=== PATIENT | male | born 1965 | race Caucasian/White ===

== ENCOUNTER 2020-02-20 08:21 | Outpatient (REF) | payer OTHER, SELFPAY ==
[2020-02-20 11:32] LABS: Hematocrit 44.2 % (42-52); Mean Corpuscular HGB Conc 33.9 g/dl (31.0-36.0); Mean Corpuscular Hemoglobin 31.6 pg (27.0-33.0); Mean Corpuscular Volume 93.2 fL (80-98); Mean Platelet Volume 11.1 fL (9.4-12.4); Platelet Count 231 X10*3/uL (160-400); Red Blood Count 4.74 X10*6/uL (4.60-5.80); Red Cell Distribution Width 13.3 % (11.0-16.0); White Blood Count 9.5 X10*3/uL (4.8-10.8)
[2020-02-20 12:08] LABS: Alanine Aminotransferase 43 U/L (0-40); Albumin Level 4.4 g/dL (3.5-5.0); Alkaline Phosphatase 56 U/L (39-117); Anion Gap 11 (12-20); Aspartate Amino Transferase 23 U/L (5-37); Bilirubin Total 0.7 mg/dL (0.0-1.0); Blood Urea Nitrogen 15 mg/dL (9-16); Calcium 8.7 mg/dL (8.4-10.2); Carbon Dioxide 28 mmol/L (22-29); Chloride 102 mmol/L (96-108); Cholesterol 169 mg/dL; Estimated Glomerular Filt Rate > 60; Glucose Fasting 96 mg/dL (60-99); HDL Cholesterol 36 mg/dL; LDL Cholesterol Calculated 112 mg/dl; Potassium 3.8 mmol/l (3.3-5.1); Sodium 137 mmol/L (135-145); Total Protein 6.8 g/dL (6.5-8.0); Triglycerides 107 mg/dL
[2020-02-20 12:09] LABS: Prostate Specific Antigen Scr 0.74 ng/mL (<0.05-4.0)
== END 2020-02-20 08:22 | disposition home or self-care (01) ==
LOC: HO.HMGCLNP 08:21
PROVIDERS: PCP Internal Medicine; Visit Provider Internal Medicine
DX: Z00.00 Encounter for general adult medical examination without abnormal findings (principal); Z13.220 Encounter for screening for lipoid disorders; Z12.5 Encounter for screening for malignant neoplasm of prostate
CPT/HCPCS: 36415; 80053; 80061; 84153; 85027

== ENCOUNTER 2021-06-10 09:08 | Outpatient (REF) | payer OTHER, SELFPAY ==
[2021-06-10 11:37] LABS: Appearance Urine HAZY; Color Urine YELLOW; Glucose Urine UA NEG (NEG); Leukocyte Esterase Urine NEG (NEG); Nitrite Urine NEG (NEG); Specific Gravity - Urine 1.015 (1.005-1.025); Urine Blood NEG (NEG); Urine Ketones NEG (NEG); Urine Protein NEG (NEG-TRACE)
[2021-06-10 11:40] LABS: Hematocrit 45.4 % (42.0-52.0); Hemoglobin 15.5 g/dl (14.0-18.0); Mean Corpuscular HGB Conc 34.1 g/dl (31.0-36.0); Mean Corpuscular Hemoglobin 31.6 pg (27.0-33.0); Mean Corpuscular Volume 92.7 fL (80.0-98.0); Mean Platelet Volume 10.6 fL (9.4-12.4); Platelet Count 237 X10*3/uL (160-400); Red Cell Distribution Width 14.3 % (11.0-16.0); White Blood Count 8.7 X10*3/uL (4.8-10.8)
[2021-06-10 11:54] LABS: Alanine Aminotransferase 40 U/L (0-40); Albumin Level 4.3 g/dL (3.5-5.0); Alkaline Phosphatase 56 U/L (39-117); Anion Gap 10 (12-20); Aspartate Amino Transferase 22 U/L (5-37); Bilirubin Total 0.7 mg/dL (0.0-1.0); Blood Urea Nitrogen 20 mg/dL (9-16); Calcium 9.8 mg/dL (8.4-10.2); Carbon Dioxide 30 mmol/L (22-29); Chloride 104 mmol/L (96-108); Cholesterol 187 mg/dL; Estimated Glomerular Filt Rate > 60; Glucose Fasting 106 mg/dL (60-99); HDL Cholesterol 35 mg/dL; LDL Cholesterol Calculated 123 mg/dl; Potassium 4.1 mmol/L (3.3-5.1); Sodium 140 mmol/L (135-145); Total Protein 6.9 g/dL (6.5-8.0); Triglycerides 149 mg/dL
[2021-06-10 12:16] LABS: Prostate Specific Antigen Scr 0.92 ng/mL (<0.05-4.0)
[2021-06-10 12:26] LABS: RBC Urine 0 /HPF (0); WBC Urine 0 /HPF (0-4)
== END 2021-06-10 09:09 | disposition home or self-care (01) ==
LOC: HO.HMGCLDS 09:08
PROVIDERS: PCP Internal Medicine; Visit Provider Internal Medicine
DX: Z00.00 Encounter for general adult medical examination without abnormal findings (principal); Z12.5 Encounter for screening for malignant neoplasm of prostate
CPT/HCPCS: 36415; 80053; 80061; 81001; 84153; 85027

== ENCOUNTER 2021-12-09 09:18 | Outpatient (REF) | payer OTHER, SELFPAY ==
[2021-12-09 11:43] LABS: Anion Gap 12 (12-20); Blood Urea Nitrogen 16 mg/dL (9-16); Calcium 9.8 mg/dL (8.4-10.2); Carbon Dioxide 28 mmol/L (22-29); Chloride 102 mmol/L (96-108); Estimated Glomerular Filt Rate > 60; Glucose Random 100 mg/dL (60-115); Potassium 4.4 mmol/L (3.3-5.1); Sodium 138 mmol/L (135-145)
== END 2021-12-09 09:19 | disposition home or self-care (01) ==
LOC: HO.HMGCLDS 09:18
PROVIDERS: PCP Internal Medicine; Visit Provider Internal Medicine
DX: I10 Essential (primary) hypertension (principal)
CPT/HCPCS: 36415; 80048

== ENCOUNTER 2022-04-19 07:28 | Outpatient (REF) | payer OTHER, SELFPAY ==
[2022-04-19 11:20] LABS: Appearance Urine Clear; Color Urine Yellow; Glucose Urine UA Negative (Negative); Leukocyte Esterase Urine Negative (Negative); Nitrite Urine Negative (Negative); Specific Gravity - Urine 1.015 (1.005-1.025); Urine Blood Negative (Negative); Urine Ketones Negative (Negative); Urine Protein Negative (Neg-Trace)
[2022-04-19 11:26] LABS: Bacteria Urine None Seen (None Seen); Hyaline Casts Urine 0-2 /LPF (0-2); RBC Urine 0-2 /HPF (0-2); Squamous Epithelial Cell Urine 0-2 /HPF (0-2); WBC Urine 0-5 /HPF (0-5)
[2022-04-19 11:28] LABS: MANUAL DIFF FLAG NO
[2022-04-19 11:46] LABS: Basophils Absolute Auto 0.1 X10*3/uL (0.0-0.2); Basophils Percent Auto 0.7 % (0-2); Eosinophils Absolute Auto 0.4 X10*3/uL (0.0-0.4); Eosinophils Percent Auto 3.5 % (0-4); Hematocrit 46.2 % (42.0-52.0); Hemoglobin 15.9 g/dl (14.0-18.0); Imm Gran Abs Auto 0.05 X10*3/uL (0.00-0.03); Imm Gran Pct Auto 0.5 % (0.0-0.4); Lymphocytes Absolute Auto 3.3 X10*3/uL (1.2-4.9); Lymphocytes Percent Auto 33.2 % (20-40); Mean Corpuscular HGB Conc 34.4 g/dl (31.0-36.0); Mean Corpuscular Hemoglobin 31.4 pg (27.0-33.0); Mean Corpuscular Volume 91.3 fL (80.0-98.0); Mean Platelet Volume 10.5 fL (9.4-12.4); Monocytes Absolute Auto 0.8 X10*3/uL (0.1-1.2); Monocytes Percent Auto 7.9 % (2-11); Neutrophils Absolute Auto 5.4 x10*3/uL (2.0-8.3); Neutrophils Percent Auto 54.2 % (45-73); Platelet Count 246 X10*3/uL (160-400); Red Blood Count 5.06 X10*6/uL (4.60-5.80); Red Cell Distribution Width 13.9 % (11.0-16.0)
[2022-04-19 12:28] LABS: Alanine Aminotransferase 58 U/L (0-40); Albumin Level 4.3 g/dL (3.5-5.0); Alkaline Phosphatase 66 U/L (39-117); Anion Gap 13 (12-20); Aspartate Amino Transferase 28 U/L (5-37); Bilirubin Total 0.6 mg/dL (0.0-1.0); Blood Urea Nitrogen 16 mg/dL (9-16); Calcium 9.4 mg/dL (8.4-10.2); Carbon Dioxide 29 mmol/L (22-29); Chloride 101 mmol/L (96-108); Cholesterol 201 mg/dL; Estimated Glomerular Filt Rate > 60; Glucose Fasting 117 mg/dL (60-99); HDL Cholesterol 39 mg/dL; LDL Cholesterol Calculated 134 mg/dl; Potassium 4.1 mmol/L (3.3-5.1); Sodium 139 mmol/L (135-145); Total Protein 6.8 g/dL (6.5-8.0); Triglycerides 141 mg/dL
== END 2022-04-19 07:29 | disposition home or self-care (01) ==
LOC: HO.HMGCLDS 07:28
PROVIDERS: PCP Internal Medicine; Visit Provider Internal Medicine
DX: Z00.00 Encounter for general adult medical examination without abnormal findings (principal); Z12.5 Encounter for screening for malignant neoplasm of prostate; I10 Essential (primary) hypertension
CPT/HCPCS: 36415; 80053; 80061; 81001; 84153; 85025

== ENCOUNTER 2022-10-13 07:11 | Outpatient (REF) | payer OTHER, SELFPAY ==
[2022-10-13 11:51] LABS: Estimated Average Glucose 108 mg/dL; Hemoglobin A1c % 5.4 %
[2022-10-13 12:13] LABS: Alanine Aminotransferase 59 U/L (0-40); Albumin Level 4.3 g/dL (3.5-5.0); Alkaline Phosphatase 60 U/L (39-117); Anion Gap 13 (12-20); Aspartate Amino Transferase 31 U/L (5-37); Bilirubin Total 0.7 mg/dL (0.0-1.0); Blood Urea Nitrogen 16 mg/dL (9-16); Calcium 9.9 mg/dL (8.4-10.2); Carbon Dioxide 25 mmol/L (22-29); Chloride 103 mmol/L (96-108); Cholesterol 185 mg/dL; Estimated Glomerular Filt Rate > 60; Glucose Fasting 111 mg/dL (60-99); HDL Cholesterol 35 mg/dL; LDL Cholesterol Calculated 106 mg/dl; Potassium 3.6 mmol/L (3.3-5.1); Sodium 137 mmol/L (135-145); Total Protein 7.2 g/dL (6.5-8.0); Triglycerides 221 mg/dL
== END 2022-10-13 07:12 | disposition home or self-care (01) ==
LOC: HO.HMGCLDS 07:11
PROVIDERS: PCP Internal Medicine; Visit Provider Internal Medicine
DX: Z00.00 Encounter for general adult medical examination without abnormal findings (principal); E78.5 Hyperlipidemia, unspecified; I10 Essential (primary) hypertension; R73.9 Hyperglycemia, unspecified
CPT/HCPCS: 36415; 80053; 80061; 83036

== ENCOUNTER 2022-10-18 09:43 | Outpatient (AMB) | payer OTHER, SELFPAY ==
[2022-10-18 10:17] VITALS: BP 126/92; PULSE 99; O2SAT 96; BMI 27.1
--- NOTE | 2022-10-18 10:17 | A.OFFPC_ITS ---
Vital Signs 10/18/22 10:17 Height 5 ft 5 in Weight 163 lb BMI 27.1 BP 126/92 H Blood Pressure Location Lt brachial Position Sitting Pulse 99 Pulse Source Pulse Oximeter Pulse Oximetry (%) 96 Oxygen Delivery Method Room Air Intake Visit Reasons: 6 month follow up Intake Note: Pt is here today for 6 months follow up visit. Allergies No Known Allergies Allergy (Verified 10/18/22 10:18) Medication List - Last Reconciled 10/18/22 by Em Miranda MD azelastine 0.05% 1 drp ophthalmic (eye) BID lisinopril 40 mg PO DAILY triamterene-hydrochlorothiazid 37.5-25 mg 1 tab PO QAM varenicline 1 mg PO BID Tobacco use date assessed: 10/18/22 Dental Screening Dental Screen Date: 10/18/22 Did you have a dental visit in the last 12 months?: Yes Did you have a dental problem in the last 6 months where you did not have access to dental care?: No Was dental information given to patient?: Patient has dentist HPI 6 month follow up HPI Details Patient presents for the follow-up on hypertension. [facility] Medical History Annual physical exam HTN (hypertension) Surgical History H/O colonoscopy Family History Father Cancer of prostate Mother No problems noted. Daughter No problems noted. Social History Housing: House Alcohol intake: current Alcohol intake frequency: a few times a month Patient Tobacco Use Status: Current everyday Tobacco user Tobacco use type: Cigarette Cigarettes Per Day: 1 e-Cigarette/Vaping Use: Never Used Current occupational status: employed Cognitive needs: No Hearing needs: No Vision needs: Yes Questionnaire Thrive Questionnaire Date Thrive assessed: 04/22/22 ORIANA-7 AMB Questionnaire ORIANA-7 Date ORIANA - 7 assessed: 04/22/22 Source: Developed by Drs. Radhames Avalos, Iona Joshi, Cayden Sherwood and colleagues, with an educational jackson from [employer]. Review of Systems Const All systems reviewed & are unremarkable except as noted in HPI and below Reports no additional complaints Eyes Reports no additional complaints ENT Reports no additional complaints Card Reports no additional complaints Resp Reports no additional complaints GI Reports no additional complaints Physical exam (Primary Care) Vital Signs: Last Vital Signs Pulse 99 10/18/22 10:17 BP 126/92 H 10/18/22 10:17 Pulse Ox 96 10/18/22 10:17 Oxygen Delivery Method Room Air 10/18/22 10:17 BMI result Body Mass Index 27.1 Tobacco/Smoking Status: Tobacco use Status Tobacco use date assessed 10/18/22 10/18/22 10:20 Patient Tobacco Use Status Current everyday Tobacco 10/18/22 10:20 Tobacco use type Cigarette 10/18/22 10:20 e-Cigarette/Vaping Use Never Used 10/18/22 10:20 Thrive Assessment: Date of Thrive Assessment Date Thrive assessed 04/22/22 10/18/22 10:20 Const General: no acute distress HENMT Head: Yes normal to inspection Face and sinus: Yes normal facial exam Eyes General: appearance normal, both eyes and all related structures Neck Neck: Yes supple Cardio Rhythm: regular rhythm Heart sounds: S1 normal heart sound present and S2 normal heart sound present GI Inspection: Yes normal to inspection Palpation (GI): Soft to palpation Percussion: Yes normal to percussion Assessment and Plan Assessment & Plan (1) HTN (hypertension): Code(s): I10 - Essential (primary) hypertension Plan: Increase lisinopril to 40 mg a day and continue Dyazide, follow-up in 6 months with a fasting labs before (2) Hyperglycemia: Code(s): R73.9 - Hyperglycemia, unspecified Plan: ADA diet regular physical activity discussed with the patient (3) Hyperlipidemia: Code(s): E78.5 - Hyperlipidemia, unspecified Plan: Continue low-cholesterol diet Orders: Orders Comprehensive Met. Panel 1 Month I10 - Essential (primary) hypertension Comprehensive [place]. Panel Fast 6 Months E78.5 - Hyperlipidemia, unspecified, I10 - Essential (primary) hypertension, R73.9 - Hyperglycemia, unspecified Lipid Panel 6 Months E78.5 - Hyperlipidemia, unspecified, I10 - Essential (primary) hypertension, R73.9 - Hyperglycemia, unspecified PSA,Total (Free>4and<10) 6 Months E78.5 - Hyperlipidemia, unspecified, I10 - Essential (primary) hypertension, R73.9 - Hyperglycemia, unspecified Complete Blood Count Auto Diff 6 Months E78.5 - Hyperlipidemia, unspecified, I10 - Essential (primary) hypertension, R73.9 - Hyperglycemia, unspecified Hemoglobin A1c 6 Months R73.9 - Hyperglycemia, unspecified Medications: New lisinopril 40 mg PO DAILY 90 tabs 3RF Discontinued lisinopril Discontinued Reason: Doctor's Order 30 mg PO DAILY 90 tabs 3RF Coding Level of Care Code Est Pt Level 4 (27799) Diagnoses HTN (hypertension) I10 Hyperglycemia R73.9 Hyperlipidemia E78.5
== END 2022-10-18 14:28 | disposition home or self-care (01) ==
PROVIDERS: Visit Provider Internal Medicine
DX: I10 Essential (primary) hypertension (principal); R73.9 Hyperglycemia, unspecified; E78.5 Hyperlipidemia, unspecified
CPT/HCPCS: 99214

== ENCOUNTER 2023-04-22 07:39 | Outpatient (REF) | payer OTHER, SELFPAY ==
[2023-04-22 11:15] LABS: MANUAL DIFF FLAG NO
[2023-04-22 11:37] LABS: Estimated Average Glucose 114 mg/dL; Hemoglobin A1C 150.2961 umol/L; Hemoglobin A1c % 5.6 % (<6.0)
[2023-04-22 11:46] LABS: Alanine Aminotransferase 122 U/L (0-40); Albumin Level 4.3 g/dL (3.5-5.0); Alkaline Phosphatase 59 U/L (39-117); Anion Gap 14 (12-20); Aspartate Amino Transferase 52 U/L (5-37); Bilirubin Total 0.7 mg/dL (0.0-1.0); Blood Urea Nitrogen 17 mg/dL (9-16); Calcium 9.6 mg/dL (8.4-10.2); Carbon Dioxide 28 mmol/L (22-29); Chloride 103 mmol/L (96-108); Cholesterol 185 mg/dL (<200); Estimated Glomerular Filt Rate > 60; Glucose Fasting 106 mg/dL (60-99); HDL Cholesterol 37 mg/dL (>40); LDL Cholesterol Calculated 123 mg/dL (<100); Potassium 3.7 mmol/L (3.3-5.1); Sodium 141 mmol/L (135-145); Total Protein 7.3 g/dL (6.5-8.0); Triglycerides 127 mg/dL (<150)
[2023-04-22 11:48] LABS: PSA,Total (Free>4and<10) 0.66 ng/mL (0.00-4.00)
[2023-04-22 12:13] LABS: Basophils Absolute Auto 0.1 X10*3/uL (0.0-0.2); Basophils Percent Auto 0.7 % (0-2); Eosinophils Absolute Auto 0.3 X10*3/uL (0.0-0.4); Eosinophils Percent Auto 3.6 % (0-4); Hematocrit 45.5 % (42.0-52.0); Hemoglobin 15.8 g/dl (14.0-18.0); Imm Gran Abs Auto 0.02 X10*3/uL (0.00-0.03); Imm Gran Pct Auto 0.2 % (0.0-0.4); Lymphocytes Absolute Auto 3.4 X10*3/uL (1.2-4.9); Mean Corpuscular HGB Conc 34.7 g/dl (31.0-36.0); Mean Corpuscular Hemoglobin 31.3 pg (27.0-33.0); Mean Corpuscular Volume 90.3 fL (80.0-98.0); Monocytes Absolute Auto 0.7 X10*3/uL (0.1-1.2); Monocytes Percent Auto 7.2 % (2-11); Neutrophils Absolute Auto 4.7 x10*3/uL (2.0-8.3); Neutrophils Percent Auto 51.3 % (45-73); Platelet Count 201 X10*3/uL (160-400); Red Blood Count 5.04 X10*6/uL (4.60-5.80); Red Cell Distribution Width 13.8 % (11.0-16.0); White Blood Count 9.1 X10*3/uL (4.8-10.8)
== END 2023-04-22 07:40 | disposition home or self-care (01) ==
LOC: HO.HMGCLDS 07:39
PROVIDERS: PCP Internal Medicine; Visit Provider Internal Medicine
DX: Z12.5 Encounter for screening for malignant neoplasm of prostate (principal); I10 Essential (primary) hypertension; E78.5 Hyperlipidemia, unspecified; R73.9 Hyperglycemia, unspecified
CPT/HCPCS: 36415; 80053; 80061; 83036; 84153; 85025

== ENCOUNTER 2023-04-27 11:14 | Outpatient (AMB) | payer OTHER, SELFPAY ==
[2023-04-27 11:51] VITALS: BP 132/80; PULSE 75; O2SAT 98; BMI 27.8
--- NOTE | 2023-04-27 11:51 | MHC.PC.OV ---
Vital Signs 04/27/23 11:51 Height 5 ft 5 in Weight 167 lb BMI 27.8 BP 132/80 Blood Pressure Location Lt brachial Position Sitting Pulse 75 Pulse Source Pulse Oximeter Pulse Oximetry (%) 98 Oxygen Delivery Method Room Air Intake Visit Reasons: annual PE Intake Note: Pt is here today for PE. Allergies No Known Allergies Allergy (Verified 04/27/23 11:54) Medication List - Last Reconciled 04/27/23 by Em Miranda MD azelastine 0.05% 1 drp ophthalmic (eye) BID lisinopril 40 mg PO DAILY triamterene-hydrochlorothiazid 37.5-25 mg 1 tab PO QAM Tobacco use date assessed: 04/27/23 Dental Screening Dental Screen Date: 04/27/23 Did you have a dental visit in the last 12 months?: Yes Did you have a dental problem in the last 6 months where you did not have access to dental care?: No Was dental information given to patient?: Patient has dentist HPI annual PE HPI Details PATIENT PRESENTS FOR PHYSICAL. [facility] Medical History HTN (hypertension) Annual physical exam Surgical History (Updated 04/27/23 @ 12:34 by Em Miranda MD) H/O colonoscopy Family History Father Cancer of prostate Mother No problems noted. Daughter No problems noted. Social History Housing: House Alcohol intake: current Alcohol intake frequency: a few times a month Patient Tobacco Use Status: Former Tobacco user (3 months ago) Tobacco use type: Cigarette Cigarettes Per Day: 1 e-Cigarette/Vaping Use: Never Used Current occupational status: employed Cognitive needs: No Hearing needs: No Vision needs: Yes Questionnaire Thrive Questionnaire Date Thrive assessed: 04/22/22 I am a: Patient What is your living situation today?: I choose not to answer this question Within the past 12 months, did the food you bought not last and you didn't have the money to get more?: I choose not to answer this question Within the past 12 months, did you worry whether your food would run out before you got money to buy more?: I choose not to answer this question THRIVE Score: 0 AUDIT C Alcohol Use Questionnaire (AUDIT-C) 1. How often do you have a drink containing alcohol?: 2-4 times a month 2. How many drinks containing alcohol do you have on a typical day when you are drinking?: 1 or 2 3. How often do you have six or more drinks on one occasion?: Never Total Score: 2 ORIANA-7 AMB Questionnaire ORIANA-7 Date ORIANA - 7 assessed: 04/22/22 Feeling nervous, anxious, or on edge: 0 = Not at all Not being able to stop or control worryin = Not at all Worrying too much about different things: 0 = Not at all Trouble relaxin = Not at all Being so restless that it is hard to sit still: 0 = Not at all Becoming easily annoyed or irritable: 0 = Not at all Feeling afraid as if something awful might happen: 0 = Not at all Total ORIANA-7 score (0-4 normal; 5-9 mild; 10-14 moderate; 15-21 severe): 0 Source: Developed by Drs. Radhames Avalos, Iona Joshi, Cayden Sherwood and colleagues, with an educational jackson from [employer]. Review of Systems Const All systems reviewed & are unremarkable except as noted in HPI and below Reports no additional complaints Eyes Reports no additional complaints ENT Reports no additional complaints Card Reports no additional complaints Resp Reports no additional complaints GI Reports no additional complaints Reports no additional complaints Physical exam (Primary Care) Vital Signs: Last Vital Signs Pulse 75 04/27/23 11:51 BP 132/80 04/27/23 11:51 Pulse Ox 98 04/27/23 11:51 Oxygen Delivery Method Room Air 04/27/23 11:51 BMI result Body Mass Index 27.8 Tobacco/Smoking Status: Tobacco use Status Tobacco use date assessed 04/27/23 04/27/23 11:56 Patient Tobacco Use Status Former Tobacco user (3 04/27/23 11:56 months ago) Tobacco use type Cigarette 04/27/23 11:56 e-Cigarette/Vaping Use Never Used 04/27/23 11:56 Thrive Assessment: Date of Thrive Assessment Date Thrive assessed 04/22/22 04/27/23 11:56 Const General: no acute distress HENMT Head: Yes normal to inspection Ears: hearing grossly normal bilaterally Mouth: Normal oral and palatal mucosa present Eyes General: appearance normal, both eyes and all related structures Neck Neck: Yes no lymphadenopathy and Yes supple Resp Effort & Inspection: normal respiratory effort Auscultation: clear to auscultation bilaterally Cardio Rhythm: regular rhythm Heart sounds: S1 normal heart sound present and S2 normal heart sound present GI Inspection: Yes normal to inspection Palpation (GI): Soft to palpation Percussion: Yes normal to percussion Auscultation: normal bowel sounds Assessment and Plan Assessment & Plan (1) Elevated LFTs: Code(s): R79.89 - Other specified abnormal findings of blood chemistry Plan: Recheck LFTs in 1 month check liver ultrasound, low saturated fat low simple carbohydrates diet discussed with the patient. (2) Hyperlipidemia: Code(s): E78.5 - Hyperlipidemia, unspecified Plan: Continue low-cholesterol diet (3) Hyperglycemia: Code(s): R73.9 - Hyperglycemia, unspecified Plan: A1c is 5.6, continue ADA diet increase exercise and weight loss discussed with the patient (4) HTN (hypertension): Code(s): I10 - Essential (primary) hypertension Plan: Continue current medications and follow-up in 2 months (5) Annual physical exam: Code(s): Z00.00 - Encounter for general adult medical examination without abnormal findings Plan: Well-balanced diet regular physical activity weight loss discussed with the patient. He is up-to-date with colonoscopy (6) H/O colonoscopy: Comment: 01/2018 polyp 11mm repeat 3 years , 06/2021 1 polyp, recheck in [address] Stratton Code(s): Z98.890 - Other specified postprocedural states Orders: Orders Liver Panel 1 Month - Other specified abnormal findings of blood chemistry US abdomen limited 1 Month - Other specified abnormal findings of blood chemistry Hepatitis B,C Profile 1 Month - Other specified abnormal findings of blood chemistry Medications: Discontinued varenicline Discontinued Reason: Doctor's Order 1 mg PO BID 56 tabs 0RF Coding Level of Care Code Est Pt Prev Care 40-64y(92819) Diagnoses Elevated LFTs . Hyperlipidemia E78.5 Hyperglycemia R73.9 HTN (hypertension) I10 Annual physical exam Z00.00 H/O colonoscopy Z98.890
== END 2023-04-27 12:27 | disposition home or self-care (01) ==
PROVIDERS: PCP Internal Medicine; Visit Provider Internal Medicine
DX: Z00.00 Encounter for general adult medical examination without abnormal findings (principal); E78.5 Hyperlipidemia, unspecified; R73.9 Hyperglycemia, unspecified; I10 Essential (primary) hypertension; Z98.890 Other specified postprocedural states
CPT/HCPCS: 99396

== ENCOUNTER 2023-05-10 08:12 | Outpatient (REF) | payer OTHER, SELFPAY ==
--- NOTE | ~2023-05-10 | US_ITS ---
EXAMINATION: US ABDOMEN LIMITED CLINICAL INFORMATION: Other specified abnormal findings of blood chemistry. Elevated LFTs. COMPARISON: None available. TECHNIQUE: Real-time imaging of the right upper quadrant abdominal viscera. FINDINGS: PANCREAS: Head and body appear unremarkable. Tail not visualized. LIVER: The liver is normal in size. The liver contour is normal. Diffusely echogenic. No focal hepatic lesion identified. No intrahepatic biliary duct dilatation is seen. GALLBLADDER: The gallbladder is physiologically distended without evidence of stones, sludge, polyps, wall thickening or pericholecystic fluid. Question 0.3 cm, echogenic, nonmobile, nonshadowing focus at the dependent portion of the gallbladder. Technologist reports negative sonographic Wolfe's sign. COMMON BILE DUCT: Normal in caliber measuring 0.5 cm in diameter. RIGHT KIDNEY: No hydronephrosis or renal calculi. The kidney measures 11.6 cm in maximum dimension. 1.6 cm, exophytic, benign right mid simple renal cyst for which no further dedicated follow up imaging is indicated. FREE FLUID: None. US/US abdomen limited IMPRESSION: Fatty infiltration of liver. Question 0.3 cm, echogenic, nonmobile, nonshadowing focus at the dependent portion of the gallbladder. The etiology and significance of this finding are uncertain. Difference diagnosis includes, but is not limited to, adenomyomatosis.
== END 2023-05-10 08:13 | disposition home or self-care (01) ==
LOC: HO.HMGCX 08:12
PROVIDERS: PCP Internal Medicine; Visit Provider Internal Medicine
DX: R79.89 Other specified abnormal findings of blood chemistry (principal)
CPT/HCPCS: 76705

== ENCOUNTER 2023-05-30 07:10 | Outpatient (REF) | payer OTHER, SELFPAY ==
[2023-05-30 13:30] LABS: Alanine Aminotransferase 77 U/L (0-40); Albumin Level 4.1 g/dL (3.5-5.0); Alkaline Phosphatase 64 U/L (39-117); Aspartate Amino Transferase 29 U/L (5-37); Bilirubin Direct 0.2 mg/dL (0.0-0.5); Bilirubin Total 0.4 mg/dL (0.0-1.0)
[2023-05-31 05:01] LABS: HBc Num1 0.08 S/CO (0.00-0.79); HBsAGNum1 0.36 S/CO (0.00-0.99); Hepatitis B Core Antibody Nonreactive (Nonreactive); Hepatitis B Surface Antigen Negative (Negative); ~HepC Num1 0.08 S/CO (0.00-0.79); ~Hepatitis B Surface Antibody NONREACTIVE (Nonreactive); ~Hepatitis C Antibody Nonreactive (Nonreactive)
== END 2023-05-30 07:11 | disposition home or self-care (01) ==
LOC: HO.HMGCLDS 07:10
PROVIDERS: PCP Internal Medicine; Visit Provider Internal Medicine
DX: R79.89 Other specified abnormal findings of blood chemistry (principal)
CPT/HCPCS: 36415; 80076; 86704; 86706; 86803; 87340

== ENCOUNTER 2023-07-01 10:46 | Outpatient (AMB) | payer OTHER, SELFPAY ==
[2023-07-01 11:15] VITALS: BP 122/68; PULSE 101; O2SAT 98; BMI 26.6
--- NOTE | 2023-07-01 11:15 | MHC.PC.OV ---
Vital Signs 07/01/23 11:15 Height 5 ft 5 in Weight 160 lb BMI 26.6 BP 122/68 Blood Pressure Location Rt brachial Position Sitting Pulse 101 H Pulse Source Pulse Oximeter Pulse Oximetry (%) 98 Oxygen Delivery Method Room Air Intake Visit Reasons: 2 month follow up Intake Note: Pt is here today for 2 months follow up visit. Allergies No Known Allergies Allergy (Verified 07/01/23 11:15) Medication List - Last Reconciled 07/01/23 by Em Miranda MD azelastine 0.05% 1 drp ophthalmic (eye) BID lisinopril 40 mg PO DAILY triamterene-hydrochlorothiazid 37.5-25 mg 1 tab PO QAM Tobacco use date assessed: 07/01/23 Dental Screening Dental Screen Date: 04/27/23 HPI 2 month follow up HPI Details Pt presents for f/u HTN controlled on medications. For borderline elevated LFTs liver ultrasound showed fatty liver. patient lost 5 lb since last visit eating well-balanced diet PFSH Medical History (Updated 07/01/23 @ 12:21 by Em Miranda MD) HTN (hypertension) Annual physical exam Surgical History (Updated 04/27/23 @ 12:34 by Em Miranda MD) H/O colonoscopy Family History Father Cancer of prostate Mother No problems noted. Daughter No problems noted. Social History Housing: House Alcohol intake: current Alcohol intake frequency: a few times a month Patient Tobacco Use Status: Former Tobacco user (3 months ago) Tobacco use type: Cigarette Cigarettes Per Day: 1 e-Cigarette/Vaping Use: Never Used service: No Current occupational status: employed Cognitive needs: No Hearing needs: No Vision needs: Yes Questionnaire Thrive Questionnaire Date Thrive assessed: 04/22/22 ORIANA-7 AMB Questionnaire ORIANA-7 Date ORIANA - 7 assessed: 04/22/22 Source: Developed by Drs. Radhames Avalos, Iona Joshi, Cayden Sherwood and colleagues, with an educational jackson from [employer] Review of Systems Const All systems reviewed & are unremarkable except as noted in HPI and below Eyes Reports no additional complaints ENT Reports no additional complaints Card Reports no additional complaints Resp Reports no additional complaints GI Reports no additional complaints Physical exam (Primary Care) Vital Signs: Last Vital Signs Pulse 101 H 07/01/23 11:15 BP 122/68 07/01/23 11:15 Pulse Ox 98 07/01/23 11:15 Oxygen Delivery Method Room Air 07/01/23 11:15 BMI result Body Mass Index 26.6 Tobacco/Smoking Status: Tobacco use Status Tobacco use date assessed 07/01/23 07/01/23 11:15 Patient Tobacco Use Status Former Tobacco user (3 07/01/23 11:15 months ago) Tobacco use type Cigarette 07/01/23 11:15 e-Cigarette/Vaping Use Never Used 07/01/23 11:15 Thrive Assessment: Date of Thrive Assessment Date Thrive assessed 04/22/22 07/01/23 11:15 Const General: no acute distress HENMT Head: Yes normal to inspection Throat: Yes posterior oropharynx normal Eyes General: appearance normal, both eyes and all related structures Neck Neck: Yes supple Resp Effort & Inspection: normal respiratory effort Auscultation: clear to auscultation bilaterally Cardio Rhythm: regular rhythm Heart sounds: S1 normal heart sound present and S2 normal heart sound present GI Inspection: Yes normal to inspection Palpation (GI): Soft to palpation Percussion: Yes normal to percussion Assessment and Plan Assessment & Plan (1) Elevated LFTs: Code(s): R79.89 - Other specified abnormal findings of blood chemistry Plan: Improving with the well-balanced diet and weight loss, recheck LFTs in 3 months (2) Hyperglycemia: Code(s): R73.9 - Hyperglycemia, unspecified Plan: Continue ADA diet regular physical activity (3) Hyperlipidemia: Code(s): E78.5 - Hyperlipidemia, unspecified Plan: Continue low-cholesterol diet (4) HTN (hypertension): Code(s): I10 - Essential (primary) hypertension Plan: Continue current medications return for physical in April (5) Gallbladder polyp: Comment: 0.3 cm on US 05/28, recheck in 1 yr Code(s): K82.4 - Cholesterolosis of gallbladder Orders: Orders Comprehensive [place]. Panel Fast 3 Months E78.5 - Hyperlipidemia, unspecified, I10 - Essential (primary) hypertension, R73.9 - Hyperglycemia, unspecified, R79.89 - Other specified abnormal findings of blood chemistry Complete Blood Count Auto Diff 10 Months E78.5 - Hyperlipidemia, unspecified, I10 - Essential (primary) hypertension, R73.9 - Hyperglycemia, unspecified, R79.89 - Other specified abnormal findings of blood chemistry PSA,Total (Free>4and<10) 10 Months E78.5 - Hyperlipidemia, unspecified, I10 - Essential (primary) hypertension, R73.9 - Hyperglycemia, unspecified, R79.89 - Other specified abnormal findings of blood chemistry UA w Microscopic 10 Months E78.5 - Hyperlipidemia, unspecified, I10 - Essential (primary) hypertension, R73.9 - Hyperglycemia, unspecified, R79.89 - Other specified abnormal findings of blood chemistry Comprehensive [place]. Panel Fast 10 Months E78.5 - Hyperlipidemia, unspecified, I10 - Essential (primary) hypertension, R73.9 - Hyperglycemia, unspecified, R79.89 - Other specified abnormal findings of blood chemistry Lipid Panel 10 Months E78.5 - Hyperlipidemia, unspecified, I10 - Essential (primary) hypertension, R73.9 - Hyperglycemia, unspecified, R79.89 - Other specified abnormal findings of blood chemistry Coding Level of Care Code Est Pt Level 3 (09142) Diagnoses Elevated LFTs R79.89 Hyperglycemia R73.9 Hyperlipidemia E78.5 HTN (hypertension) I10 Gallbladder polyp K82.4
== END 2023-07-01 12:22 | disposition home or self-care (01) ==
PROVIDERS: PCP Internal Medicine; Visit Provider Internal Medicine
DX: R73.9 Hyperglycemia, unspecified (principal); E78.5 Hyperlipidemia, unspecified; I10 Essential (primary) hypertension; K82.4 Cholesterolosis of gallbladder
CPT/HCPCS: 99213

== ENCOUNTER 2023-11-03 07:12 | Outpatient (REF) | payer OTHER, SELFPAY ==
[2023-11-03 10:33] LABS: Alanine Aminotransferase 53 U/L (0-40); Albumin Level 4.3 g/dL (3.5-5.0); Alkaline Phosphatase 57 U/L (39-117); Anion Gap 11 (12-20); Aspartate Amino Transferase 26 U/L (5-37); Bilirubin Total 0.6 mg/dL (0.0-1.0); Blood Urea Nitrogen 21 mg/dL (9-16); Calcium 10.1 mg/dL (8.4-10.2); Carbon Dioxide 28 mmol/L (22-29); Chloride 103 mmol/L (96-108); Estimated Glomerular Filt Rate > 60; Glucose Fasting 107 mg/dL (60-99); Potassium 4.2 mmol/L (3.3-5.1); Sodium 138 mmol/L (135-145); Total Protein 7.3 g/dL (6.5-8.0)
== END 2023-11-03 07:13 | disposition home or self-care (01) ==
LOC: HO.HMGCLDS 07:12
PROVIDERS: PCP Internal Medicine; Visit Provider Internal Medicine
DX: E78.5 Hyperlipidemia, unspecified (principal); R73.9 Hyperglycemia, unspecified; R79.89 Other specified abnormal findings of blood chemistry; I10 Essential (primary) hypertension
CPT/HCPCS: 36415; 80053

== ENCOUNTER 2024-05-17 06:58 | Outpatient (REF) | payer OTHER, SELFPAY ==
[2024-05-17 10:09] LABS: MANUAL DIFF FLAG NO
[2024-05-17 10:12] LABS: Appearance Urine Clear; Basophils Absolute Auto 0.1 X10*3/uL (0.0-0.2); Basophils Percent Auto 0.6 % (0-2); Color Urine Yellow; Eosinophils Absolute Auto 0.2 X10*3/uL (0.0-0.4); Eosinophils Percent Auto 2.6 % (0-4); Glucose Urine UA Negative (Negative); Hematocrit 43.6 % (42.0-52.0); Hemoglobin 15.5 g/dl (14.0-18.0); Imm Gran Abs Auto 0.02 X10*3/uL (0.00-0.03); Imm Gran Pct Auto 0.2 % (0.0-0.4); Leukocyte Esterase Urine Negative (Negative); Lymphocytes Absolute Auto 3.1 X10*3/uL (1.2-4.9); Lymphocytes Percent Auto 34.4 % (20-40); Mean Corpuscular HGB Conc 35.6 g/dl (31.0-36.0); Mean Corpuscular Volume 90.1 fL (80.0-98.0); Mean Platelet Volume 11.8 fL (9.4-12.4); Monocytes Absolute Auto 0.7 X10*3/uL (0.1-1.2); Monocytes Percent Auto 7.8 % (2-11); Neutrophils Absolute Auto 4.9 x10*3/uL (2.0-8.3); Neutrophils Percent Auto 54.4 % (45-73); Nitrite Urine Negative (Negative); Platelet Count 175 X10*3/uL (160-400); Red Blood Count 4.84 X10*6/uL (4.60-5.80); Urine Blood Negative (Negative); Urine Ketones Negative (Negative); Urine Protein Negative (Neg-Trace)
[2024-05-17 10:18] LABS: Bacteria Urine None Seen (None Seen); Hyaline Casts Urine 0-2 /LPF (0-2); RBC Urine 0-2 /HPF (0-2); Squamous Epithelial Cell Urine 0-2 /HPF (0-2); WBC Urine 0-5 /HPF (0-5)
[2024-05-17 10:33] LABS: Alanine Aminotransferase 84 U/L (0-40); Albumin Level 4.2 g/dL (3.5-5.0); Alkaline Phosphatase 62 U/L (39-117); Anion Gap 10 (12-20); Aspartate Amino Transferase 43 U/L (5-37); Bilirubin Total 0.7 mg/dL (0.0-1.0); Blood Urea Nitrogen 22 mg/dL (9-16); Calcium 9.5 mg/dL (8.4-10.2); Carbon Dioxide 28 mmol/L (22-29); Chloride 104 mmol/L (96-108); Cholesterol 172 mg/dL (<200); Estimated Glomerular Filt Rate > 60; Glucose Fasting 106 mg/dL (60-99); HDL Cholesterol 34 mg/dL (>40); LDL Cholesterol Calculated 108 mg/dL (<100); Potassium 3.5 mmol/L (3.3-5.1); Sodium 138 mmol/L (135-145); Total Protein 7.4 g/dL (6.5-8.0); Triglycerides 150 mg/dL (<150)
[2024-05-17 10:58] LABS: PSA,Total (Free>4and<10) 0.82 ng/mL (0.00-4.00)
== END 2024-05-17 06:59 | disposition home or self-care (01) ==
LOC: HO.HMGCLDS 06:58
PROVIDERS: PCP Internal Medicine; Visit Provider Internal Medicine
DX: I10 Essential (primary) hypertension (principal); R73.9 Hyperglycemia, unspecified; Z12.5 Encounter for screening for malignant neoplasm of prostate; E78.5 Hyperlipidemia, unspecified
CPT/HCPCS: 36415; 80053; 80061; 81001; 84153; 85025

== ENCOUNTER 2024-05-18 08:18 | Outpatient (AMB) | payer OTHER, SELFPAY ==
[2024-05-18 08:24] VITALS: BP 130/90; PULSE 104; RESP 18; O2SAT 97; BMI 27.0
--- NOTE | 2024-05-18 08:24 | A.OFFPC_ITS ---
Vital Signs 05/18/24 08:24 Height 5 ft 5 in Weight 162 lb 2 oz BMI 27.0 BP 130/90 H Blood Pressure Location Lt brachial Position Sitting Respiration 18 Pulse 104 H Pulse Source Pulse Oximeter Pulse Oximetry (%) 97 Oxygen Delivery Method Room Air Intake Visit Reasons: annual PE Intake Note: Pt is here today for his annual physical. Allergies No Known Allergies Allergy (Verified 05/18/24 08:24) Medication List - Last Reconciled 05/18/24 by Em Miranda MD amlodipine-benazepril 5-40 mg 1 cap PO DAILY azelastine 0.05% 1 drp ophthalmic (eye) BID triamterene-hydrochlorothiazid 37.5-25 mg 1 tab PO QAM Tobacco use date assessed: 05/18/24 Dental Screening Dental Screen Date: 05/18/24 Did you have a dental visit in the last 12 months?: Yes Did you have a dental problem in the last 6 months where you did not have access to dental care?: No Was dental information given to patient?: Patient has dentist HPI annual PE HPI Details Patient presents for a physical [facility] Medical History HTN (hypertension) Annual physical exam Surgical History H/O colonoscopy Family History Father Cancer of prostate Mother No problems noted. Daughter No problems noted. Social History Housing: House Alcohol intake: current Alcohol intake frequency: a few times a month Patient Tobacco Use Status: Former Tobacco user (3 months ago) Tobacco use type: Cigarette Cigarettes Per Day: 1 e-Cigarette/Vaping Use: Never Used service: No Current occupational status: employed Cognitive needs: No Hearing needs: No Vision needs: Yes Questionnaire PHQ-9 Over the last 2 weeks, how often have you been bothered by any of the following problems? 1. Little interest or pleasure in doing things: not at all 2. Feeling down, depressed, or hopeless: not at all 3. Trouble falling or staying asleep, or sleeping too much: not at all 4. Feeling tired or having little energy: not at all 5. Poor appetite or overeating: not at all 6. Feeling bad about yourself - or that you are a failure or have let yourself or your family down: not at all 7. Trouble concentrating on things, such as reading the newspaper or watching television: not at all 8. Moving or speaking so slowly that other people could have noticed. Or the opposite - being so fidgety or restless that you have been moving around a lot more than usual: not at all 9. Thoughts that you would be better off or of hurting yourself in some way: not at all Total score: 0 Depression Screening Interpretation: Negative Depression Screening Done: Yes 28451 - PHQ-9 Billing: Yes Source: Developed by Drs. Radhames Avalos, Iona Joshi, Cayden Sherwood and colleagues, with an educational jackson from [employer]. Thrive Questionnaire Date Thrive assessed: 05/18/24 I am a: Patient What is your living situation today?: I have a steady place to live Within the past 12 months, did the food you bought not last and you didn't have the money to get more?: I choose not to answer this question Within the past 12 months, did you worry whether your food would run out before you got money to buy more?: I choose not to answer this question Do you have trouble paying for medicines?: No Do you have trouble getting transportation to medical appointments?: No Do you have trouble paying your heating and electricity bill?: No Do you have trouble taking care of your child, family member or friend?: No Do you have trouble with day-to-day activities such as bathing, preparing meals, shopping, managing finances, etc.?: No Are you currently unemployed and looking for a job?: No Are you interested in more education?: I choose not to answer this question Please select the resources that you would like help with: None Currently or been in a relationship where the following occur: I choose not to answer THRIVE Score: 0 AUDIT C Alcohol Use Questionnaire (AUDIT-C) 1. How often do you have a drink containing alcohol?: 2-4 times a month 2. How many drinks containing alcohol do you have on a typical day when you are drinking?: 1 or 2 3. How often do you have six or more drinks on one occasion?: Never Total Score: 2 Score Reviewed/Action Taken: Yes ORIANA-7 AMB Questionnaire ORIANA-7 Date ORIANA - 7 assessed: 05/18/24 Feeling nervous, anxious, or on edge: 0 = Not at all Not being able to stop or control worryin = Not at all Worrying too much about different things: 0 = Not at all Trouble relaxin = Not at all Being so restless that it is hard to sit still: 0 = Not at all Becoming easily annoyed or irritable: 0 = Not at all Feeling afraid as if something awful might happen: 0 = Not at all Total ORIANA-7 score (0-4 normal; 5-9 mild; 10-14 moderate; 15-21 severe): 0 Source: Developed by Drs. Radhames Avalos, Iona Joshi, Cayden Sherwood and colleagues, with an educational jackson from [employer]. ORIANA-7 Assessment Billing ORIANA-7 Assessment Tool: ORIANA-7 Assessment 45127 Review of Systems Const All systems reviewed & are unremarkable except as noted in HPI and below Reports no additional complaints Eyes Reports no additional complaints ENT Reports no additional complaints Card Reports no additional complaints Resp Reports no additional complaints GI Reports no additional complaints Reports no additional complaints Physical exam (Primary Care) Vital Signs: Last Vital Signs Pulse 104 H 05/18/24 08:24 Resp 18 05/18/24 08:24 BP 130/90 H 05/18/24 08:24 Pulse Ox 97 05/18/24 08:24 Oxygen Delivery Method Room Air 05/18/24 08:24 BMI result Body Mass Index 27.0 Tobacco/Smoking Status: Tobacco use Status Tobacco use date assessed 05/18/24 05/18/24 08:29 Patient Tobacco Use Status Former Tobacco user (3 05/18/24 08:29 months ago) Tobacco use type Cigarette 05/18/24 08:29 e-Cigarette/Vaping Use Never Used 05/18/24 08:29 PHQ-9: PHQ-9 Score PHQ-9: Total score 0 05/18/24 09:11 Depression Screening Interpretation: Negative Thrive Assessment: Date of Thrive Assessment Date Thrive assessed 05/18/24 05/18/24 08:29 Currently or been in a relationship where the following occur: I choose not to answer Const General: no acute distress HENMT Head: Yes normal to inspection Ears: hearing grossly normal bilaterally Face and sinus: Yes normal facial exam Mouth: Normal oral and palatal mucosa present Eyes General: appearance normal, both eyes and all related structures Neck Neck: Yes no lymphadenopathy and Yes supple Resp Effort & Inspection: normal respiratory effort Auscultation: clear to auscultation bilaterally Cardio Rhythm: regular rhythm Heart sounds: S1 normal heart sound present and S2 normal heart sound present GI Inspection: Yes normal to inspection Palpation (GI): Soft to palpation Percussion: Yes normal to percussion Auscultation: normal bowel sounds Coding Level of Care Code Est Pt Prev Care 40-64y(62828) Diagnoses Gallbladder polyp K82.4 HTN (hypertension) I10 Elevated LFTs Hyperglycemia R73.9 Additional Codes ORIANA-7 Assessment Billing - ORIANA-7 Assessment Tool: ORIANA-7 Assessment 61457 ([id number]) PHQ-9 - 46741 - PHQ-9 Billing: Yes ([id number]) Assessment & Plan Assessment & Plan (1) Gallbladder polyp: Comment: 0.3 cm on US 05/28, recheck in 1 yr Code(s): K82.4 - Cholesterolosis of gallbladder Category: Medical Plan: Repeat ultrasound of liver and gallbladder (2) HTN (hypertension): Code(s): I10 - Essential (primary) hypertension Category: Medical Plan: For elevated blood pressure change lisinopril 40 mg to amlodipine with benazepril 5/40 and continue triamterene with hydrochlorothiazide follow-up in 1 month (3) Elevated LFTs: Code(s): R7.89 - Other specified abnormal findings of blood chemistry Category: Medical Plan: Decreasing alcohol intake avoiding NSAIDs and simple carbohydrate diet discussed with the patient she will repeat LFTs in 6 weeks (4) Hyperglycemia: Code(s): R73.9 - Hyperglycemia, unspecified Category: Medical Plan: ADA diet discussed with the patient check A1c Orders: Orders US abdomen limited Today K82.4 - Cholesterolosis of gallbladder Liver Panel 6 Weeks I10 - Essential (primary) hypertension, R7.89 - Other specified abnormal findings of blood chemistry Ceruloplasmin 6 Weeks R7 - Other specified abnormal findings of blood chemistry Alpha 1 Anti-trypsin 6 Weeks R7 - Other specified abnormal findings of blood chemistry Mitochondrial Antibody 6 Weeks R7. - Other specified abnormal findings of blood chemistry Hemoglobin A1c Today R73.9 - Hyperglycemia, unspecified IRON PROFILE 6 Weeks - Other specified abnormal findings of blood chemistry Liver Kidney Microsomal Ab 6 Weeks - Other specified abnormal findings of blood chemistry Medications: New amlodipine-benazepril 5-40 mg 1 cap PO DAILY 90 caps 1RF Discontinued lisinopril Discontinued Reason: Doctor's Order 40 mg PO DAILY 90 tabs 3RF
== END 2024-05-18 09:14 | disposition home or self-care (01) ==
LOC: HO.HMCC 08:19
PROVIDERS: PCP Internal Medicine; Visit Provider Internal Medicine
DX: Z00.00 Encounter for general adult medical examination without abnormal findings (principal); K82.4 Cholesterolosis of gallbladder; I10 Essential (primary) hypertension; R79.89 Other specified abnormal findings of blood chemistry; R73.9 Hyperglycemia, unspecified

== ENCOUNTER → 2024-05-18 08:18 | Outpatient (BNVA) | payer OTHER, SELFPAY | PROVIDERS: PCP Internal Medicine; Visit Provider Internal Medicine | DX: Z00.00 Encounter for general adult medical examination without abnormal findings (principal); K82.4 Cholesterolosis of gallbladder; I10 Essential (primary) hypertension; R79.89 Other specified abnormal findings of blood chemistry; R73.9 Hyperglycemia, unspecified | CPT/HCPCS: 96127 ==

== ENCOUNTER 2024-06-29 08:09 | Outpatient (REF) | payer OTHER, SELFPAY ==
--- NOTE | ~2024-06-29 | US_ITS ---
EXAMINATION: US ABDOMEN LIMITED CLINICAL INFORMATION: Cholesterolosis gallbladder. COMPARISON: Ultrasound abdomen 05/10/2023 TECHNIQUE: Real-time imaging of the right upper quadrant abdominal viscera. FINDINGS: PANCREAS: Visualized portions are unremarkable. LIVER: The liver is normal in size. The liver contour is normal. Parenchymal echogenicity is normal. No focal hepatic lesion. There is no intrahepatic biliary duct dilatation seen. GALLBLADDER: The gallbladder is physiologically distended without evidence of stones, sludge, polyps, wall thickening or pericholecystic fluid. Gallbladder wall thickness is 0.18 cm. Visualized artery calcification is not seen on the present exam. COMMON BILE DUCT: Normal in caliber measuring 0.42 cm in diameter. RIGHT KIDNEY: No hydronephrosis. There is anechoic cyst upper pole measuring 1.6 x 1.6 x 1.7 cm. No renal calculi or focal parenchymal lesions. No additional cysts seen. No echogenic stones or hydronephrosis. The right kidney measures 11.5 cm in maximum dimension. FREE FLUID: None. US/US abdomen limited IMPRESSION: Anechoic cyst upper pole right kidney measuring 1.7 cm. Visualized pancreas, gallbladder, liver and CBD is unremarkable. Electronically signed by: Sidney Godoy MD 07/02/2024 09:14 AM EDT
== END 2024-06-29 08:10 | disposition home or self-care (01) ==
LOC: HO.HMGCX 08:09
PROVIDERS: PCP Internal Medicine; Visit Provider Internal Medicine
DX: K82.4 Cholesterolosis of gallbladder (principal)
CPT/HCPCS: 76705

== ENCOUNTER → 2024-06-29 08:27 | Outpatient (BNV) | payer OTHER, SELFPAY | PROVIDERS: PCP Internal Medicine; Visit Provider Radiology Diagnostic Radiology | DX: R79.89 Other specified abnormal findings of blood chemistry (principal); R10.11 Right upper quadrant pain; N28.1 Cyst of kidney, acquired | CPT/HCPCS: 76705 ==

== ENCOUNTER 2024-07-13 07:32 | Outpatient (REF) | payer OTHER, SELFPAY ==
[2024-07-13 10:18] LABS: Estimated Average Glucose 117 mg/dL; Hemoglobin A1C 161.7383 umol/L; Hemoglobin A1c % 5.7 % (<6.0); Total Hemoglobin (HGBA1C) 4124.2799 umol/L
[2024-07-13 10:29] LABS: Alanine Aminotransferase 72 U/L (0-40); Albumin Level 4.4 g/dL (3.5-5.0); Alkaline Phosphatase 64 U/L (39-117); Aspartate Amino Transferase 38 U/L (5-37); Bilirubin Direct 0.2 mg/dL (0.0-0.5); Bilirubin Total 0.7 mg/dL (0.0-1.0); Iron 141 mcg/dL (45-160); Percent Iron Saturation 49 % (15-50); Total Iron Binding Capacity 287 mcg/dL (228-428); Total Protein 7.2 g/dL (6.5-8.0); Unsaturated Iron Binding 146 ug/dL
[2024-07-16 17:43] LABS: Alpha 1 Anti-trypsin 133 mg/dL (83-199); Ceruloplasmin 23 mg/dL (14-30)
[2024-07-17 13:18] LABS: Mitochondrial Antibodies NEGATIVE (NEGATIVE)
[2024-07-17 17:33] LABS: Liver Kidney Microsomal Ab <=20.0 U (<=20.0)
== END 2024-07-13 07:33 | disposition home or self-care (01) ==
LOC: HO.HMGCLDS 07:32
PROVIDERS: PCP Internal Medicine; Visit Provider Internal Medicine
DX: M25.561 Pain in right knee (principal); I10 Essential (primary) hypertension; R73.9 Hyperglycemia, unspecified
CPT/HCPCS: 36415; 80076; 82103; 82390; 83036; 83540; 86376; 86381

== ENCOUNTER 2024-07-13 08:44 | Outpatient (AMB) | payer OTHER, SELFPAY ==
[2024-07-13 08:50] VITALS: BP 120/86; PULSE 103; RESP 18; TEMP 36.7; O2SAT 98; BMI 27.5
--- NOTE | 2024-07-13 08:50 | MHC.PC.OV ---
Vital Signs 07/13/24 08:50 Height 5 ft 5 in Weight 165 lb BMI 27.5 BP 120/86 Blood Pressure Location Lt brachial Position Sitting Respiration 18 Pulse 103 H Pulse Source Pulse Oximeter Temp 98.0 F Temp Source Oral Pulse Oximetry (%) 98 Oxygen Delivery Method Room Air Intake Visit Reasons: 6/8 week follow up Intake Note: Pt is here today for a follow up visit. Allergies No Known Allergies Allergy (Verified 07/13/24 09:01) Medication List - Last Reconciled 07/13/24 by Em Miranda MD amlodipine-benazepril 5-40 mg 1 cap PO DAILY azelastine 0.05% 1 drp ophthalmic (eye) BID triamterene-hydrochlorothiazid 37.5-25 mg 1 tab PO QAM Tobacco use date assessed: 07/13/24 Dental Screening Dental Screen Date: 05/18/24 HPI 6/8 week follow up HPI Details Pt presents for follow-up of hypertension, controlled on current medications. Patient complains of chronic right knee pain and stiffness when walking for long time or getting up in the morning. He denies any injury joint swelling pain at rest PFSH Medical History HTN (hypertension) Annual physical exam Surgical History H/O colonoscopy Family History Father Cancer of prostate Mother No problems noted. Daughter No problems noted. Social History Housing: House Alcohol intake: current Alcohol intake frequency: a few times a month Patient Tobacco Use Status: Former Tobacco user (3 months ago) Tobacco use type: Cigarette Cigarettes Per Day: 1 e-Cigarette/Vaping Use: Never Used service: No Current occupational status: employed Cognitive needs: No Hearing needs: No Vision needs: Yes Questionnaire Thrive Questionnaire Date Thrive assessed: 05/16/24 I am a: Patient What is your living situation today?: I have a steady place to live Within the past 12 months, did the food you bought not last and you didn't have the money to get more?: I choose not to answer this question Within the past 12 months, did you worry whether your food would run out before you got money to buy more?: I choose not to answer this question Do you have trouble paying for medicines?: No Do you have trouble getting transportation to medical appointments?: No Do you have trouble paying your heating and electricity bill?: No Do you have trouble taking care of your child, family member or friend?: No Do you have trouble with day-to-day activities such as bathing, preparing meals, shopping, managing finances, etc.?: No Are you currently unemployed and looking for a job?: No Are you interested in more education?: I choose not to answer this question Please select the resources that you would like help with: None Currently or been in a relationship where the following occur: I choose not to answer THRIVE Score: 0 ORIANA-7 AMB Questionnaire ORIANA-7 Date ORIANA - 7 assessed: 05/18/24 Source: Developed by Drs. Radhames Avalos, Iona Joshi, Cayden Sherwood and colleagues, with an educational jackson from [employer]. Review of Systems Const All systems reviewed & are unremarkable except as noted in HPI and below ENT Reports no additional complaints Card Reports no additional complaints Resp Reports no additional complaints GI Reports no additional complaints Reports no additional complaints Physical exam (Primary Care) Vital Signs: Last Vital Signs Temp 98.0 F 07/13/24 08:50 Pulse 103 H 07/13/24 08:50 Resp 18 07/13/24 08:50 BP 120/86 07/13/24 08:50 Pulse Ox 98 07/13/24 08:50 Oxygen Delivery Method Room Air 07/13/24 08:50 BMI result Body Mass Index 27.5 Tobacco/Smoking Status: Tobacco use Status Tobacco use date assessed 07/13/24 07/13/24 09:04 Patient Tobacco Use Status Former Tobacco user (3 07/13/24 08:50 months ago) Tobacco use type Cigarette 07/13/24 08:50 e-Cigarette/Vaping Use Never Used 07/13/24 08:50 Thrive Assessment: Date of Thrive Assessment Date Thrive assessed 05/16/24 07/13/24 08:50 Currently or been in a relationship where the following occur: I choose not to answer Const General: no acute distress HENMT Head: Yes normal to inspection Face and sinus: Yes normal facial exam Neck Neck: Yes supple Resp Effort & Inspection: normal respiratory effort Auscultation: clear to auscultation bilaterally Cardio Rhythm: regular rhythm Heart sounds: S1 normal heart sound present and S2 normal heart sound present Extrem Other: There is a full range of motion of the right knee, no joint swelling erythema warmth or tenderness Coding Level of Care Code Est Pt Level 4 (29878) Diagnoses Knee pain, right M25.561 HTN (hypertension) I10 Hyperglycemia R73.9 Assessment & Plan Assessment & Plan (1) Knee pain, right: Code(s): M25.561 - Pain in right knee Category: Medical Plan: Obtain x-ray PT was recommended but patient declined (2) HTN (hypertension): Code(s): I10 - Essential (primary) hypertension Category: Medical Plan: Continue current medications follow-up in 5 months (3) Hyperglycemia: Code(s): R73.9 - Hyperglycemia, unspecified Category: Medical Plan: ADA diet increase exercise discussed with the patient Orders: Orders XR knee RT 2V Today M25.561 - Pain in right knee Comprehensive [place]. Panel Fast 5 Months I10 - Essential (primary) hypertension, R73.9 - Hyperglycemia, unspecified
== END 2024-07-13 09:40 | disposition home or self-care (01) ==
LOC: HO.HMCC 08:45
PROVIDERS: PCP Internal Medicine; Visit Provider Internal Medicine
DX: M25.561 Pain in right knee (principal); I10 Essential (primary) hypertension; R73.9 Hyperglycemia, unspecified

== ENCOUNTER 2024-12-13 06:52 | Outpatient (REF) | payer OTHER, SELFPAY ==
[2024-12-13 10:24] LABS: Alanine Aminotransferase 67 U/L (0-40); Albumin Level 4.6 g/dL (3.5-5.0); Alkaline Phosphatase 63 U/L (39-117); Anion Gap 9 (12-20); Aspartate Amino Transferase 38 U/L (5-37); Blood Urea Nitrogen 17 mg/dL (9-16); Calcium 9.7 mg/dL (8.4-10.2); Carbon Dioxide 29 mmol/L (22-29); Chloride 104 mmol/L (96-108); Estimated Glomerular Filt Rate > 60; Potassium 3.4 mmol/L (3.3-5.1); Sodium 139 mmol/L (135-145); Total Protein 7.2 g/dL (6.5-8.0)
== END 2024-12-13 06:53 | disposition home or self-care (01) ==
LOC: HO.HMGCLDS 06:52
PROVIDERS: PCP Internal Medicine; Visit Provider Internal Medicine
DX: I10 Essential (primary) hypertension (principal); R73.9 Hyperglycemia, unspecified
CPT/HCPCS: 36415; 80053

== ENCOUNTER 2024-12-14 09:39 | Outpatient (AMB) | payer OTHER, SELFPAY ==
[2024-12-14 09:42] VITALS: BP 110/82; PULSE 86; RESP 17; TEMP 37.3; O2SAT 96; BMI 26.8
--- NOTE | 2024-12-14 09:42 | MHC.PC.OV ---
Vital Signs 12/14/24 09:42 Height 5 ft 5 in Weight 161 lb BMI 26.8 BP 110/82 Blood Pressure Location Lt brachial Position Sitting Respiration 17 Pulse 86 Pulse Source Pulse Oximeter Temp 99.1 F Temp Source Oral Pulse Oximetry (%) 96 Oxygen Delivery Method Room Air Intake Visit Reasons: 5 months f/up Intake Note: Pt is here today for 5 months follow up visit. Allergies No Known Allergies Allergy (Verified 12/14/24 09:51) Medication List - Last Reconciled 12/14/24 by Em Miranda MD amlodipine-benazepril 5-40 mg 1 cap PO DAILY azelastine 0.05% 1 drp ophthalmic (eye) BID triamterene-hydrochlorothiazid 37.5-25 mg 1 tab PO QAM Tobacco use date assessed: 12/14/24 Dental Screening Dental Screen Date: 05/18/24 HPI 5 months f/up HPI Details Pt presents for f/u HTN, stable on meds. [facility] Medical History (Updated 12/14/24 @ 13:10 by Em Miranda MD) Hyperlipidemia Hyperglycemia HTN (hypertension) Annual physical exam Surgical History H/O colonoscopy Family History Father Cancer of prostate Mother No problems noted. Daughter No problems noted. Social History Housing: House Alcohol intake: current Alcohol intake frequency: a few times a month Patient Tobacco Use Status: Former Tobacco user (3 months ago) Tobacco use type: Cigarette Cigarettes Per Day: 1 e-Cigarette/Vaping Use: Never Used service: No Current occupational status: employed Cognitive needs: No Hearing needs: No Vision needs: Yes Questionnaire PHQ-9 Over the last 2 weeks, how often have you been bothered by any of the following problems? 1. Little interest or pleasure in doing things: not at all 2. Feeling down, depressed, or hopeless: not at all 3. Trouble falling or staying asleep, or sleeping too much: not at all 4. Feeling tired or having little energy: not at all 5. Poor appetite or overeating: not at all 6. Feeling bad about yourself - or that you are a failure or have let yourself or your family down: not at all 7. Trouble concentrating on things, such as reading the newspaper or watching television: not at all 8. Moving or speaking so slowly that other people could have noticed. Or the opposite - being so fidgety or restless that you have been moving around a lot more than usual: not at all 9. Thoughts that you would be better off or of hurting yourself in some way: not at all Total score: 0 Depression Screening Interpretation: Negative Depression Screening Done: Yes Source: Developed by Drs. Radhames Avalos, Iona Joshi, Cayden Sherwood and colleagues, with an educational jackson from [employer]. Thrive Questionnaire Date Thrive assessed: 05/16/24 I am a: Patient What is your living situation today?: I have a steady place to live Within the past 12 months, did the food you bought not last and you didn't have the money to get more?: I choose not to answer this question Within the past 12 months, did you worry whether your food would run out before you got money to buy more?: I choose not to answer this question Do you have trouble paying for medicines?: No Do you have trouble getting transportation to medical appointments?: No Do you have trouble paying your heating and electricity bill?: No Do you have trouble taking care of your child, family member or friend?: No Do you have trouble with day-to-day activities such as bathing, preparing meals, shopping, managing finances, etc.?: No Are you currently unemployed and looking for a job?: No Are you interested in more education?: I choose not to answer this question Please select the resources that you would like help with: None Currently or been in a relationship where the following occur: I choose not to answer THRIVE Score: 0 ORIANA-7 AMB Questionnaire ORIANA-7 Date ORIANA - 7 assessed: 05/18/24 Feeling nervous, anxious, or on edge: 0 = Not at all Not being able to stop or control worryin = Not at all Worrying too much about different things: 0 = Not at all Trouble relaxin = Not at all Being so restless that it is hard to sit still: 0 = Not at all Becoming easily annoyed or irritable: 0 = Not at all Feeling afraid as if something awful might happen: 0 = Not at all Total ORIANA-7 score (0-4 normal; 5-9 mild; 10-14 moderate; 15-21 severe): 0 Source: Developed by Drs. Radhames Avalos, Iona Joshi, Cayden Sherwood and colleagues, with an educational jackson from [employer]. Review of Systems Const All systems reviewed & are unremarkable except as noted in HPI and below Eyes Reports no additional complaints ENT Reports no additional complaints Card Reports no additional complaints Resp Reports no additional complaints GI Reports no additional complaints Reports no additional complaints Physical exam (Primary Care) Vital Signs: Last Vital Signs Temp 99.1 F 12/14/24 09:42 Pulse 86 12/14/24 09:42 Resp 17 12/14/24 09:42 BP 110/82 12/14/24 09:42 Pulse Ox 96 12/14/24 09:42 Oxygen Delivery Method Room Air 12/14/24 09:42 BMI result Body Mass Index 26.8 Tobacco/Smoking Status: Tobacco use Status Tobacco use date assessed 12/14/24 12/14/24 09:52 Patient Tobacco Use Status Former Tobacco user (3 12/14/24 09:42 months ago) Tobacco use type Cigarette 12/14/24 09:42 e-Cigarette/Vaping Use Never Used 12/14/24 09:42 PHQ-9: PHQ-9 Score PHQ-9: Total score 0 12/14/24 10:32 Depression Screening Interpretation: Negative Thrive Assessment: Date of Thrive Assessment Date Thrive assessed 05/16/24 12/14/24 09:42 Currently or been in a relationship where the following occur: I choose not to answer Const General: no acute distress HENMT Head: Yes normal to inspection Ears: hearing grossly normal bilaterally Throat: Yes posterior oropharynx normal Eyes General: appearance normal, both eyes and all related structures Resp Effort & Inspection: normal respiratory effort Auscultation: clear to auscultation bilaterally Cardio Rhythm: regular rhythm Heart sounds: S1 normal heart sound present and S2 normal heart sound present Office Procedures Flu Questionnaire Does the patient have a severe egg allergy?: No Does the patient have severe life threatening allergies?: No Does the patient have a fever or illness today?: No Has the patient ever had Guillain-[place] Syndrome?: No Has the patient ever had any past reaction to a flu shot?: No Immunizations Fluarix [id number] (PF) 45 mcg (15 mcg x 3)/0.5 mL IM syringe Performing Provider: Em Miranda MD Performing Location: [facility] Administered by: LEROY Archuleta on 12/14/24 10:09 Dose Route Admin Location Dispensed Lot Number Expiration Date NDC Platform Beater 0.5 mL IM Left Deltoid 0.5 mL [id number] 09/03/25 [id number] [employer] VIS Given Date VIS Provided VIS Publication Date 12/14/24 Single Vaccine 24 Eligibility Eligibility Date Funding Source Not [facility] Eligible 12/14/24 Private Coding Level of Care Code Est Pt Level 4 (78921) Diagnoses HTN (hypertension) I10 Hyperglycemia R73.9 Hyperlipidemia E78.5 Assessment & Plan Assessment & Plan (1) HTN (hypertension): Code(s): I10 - Essential (primary) hypertension Category: Medical Plan: Continue current medication well-balanced diet regular physical activity weight loss discussed with the patient (2) Hyperglycemia: Code(s): R73.9 - Hyperglycemia, unspecified Category: Medical Plan: Continue ADA diet check A1c (3) Hyperlipidemia: Comment: Diet controlled Code(s): E78.5 - Hyperlipidemia, unspecified Category: Medical Plan: Continue low-cholesterol diet return for physical in 5 months Orders: Orders Influenza [id number] Immunization Today Z23 - Encounter for immunization Lipid Panel 5 Months E78.5 - Hyperlipidemia, unspecified, I10 - Essential (primary) hypertension, R73.9 - Hyperglycemia, unspecified, Z00.00 - Encounter for general adult medical examination without abnormal findings UA w Microscopic 5 Months E78.5 - Hyperlipidemia, unspecified, I10 - Essential (primary) hypertension, R73.9 - Hyperglycemia, unspecified, Z00.00 - Encounter for general adult medical examination without abnormal findings Comprehensive [place]. Panel Fast 5 Months E78.5 - Hyperlipidemia, unspecified, I10 - Essential (primary) hypertension, R73.9 - Hyperglycemia, unspecified, Z00.00 - Encounter for general adult medical examination without abnormal findings Hemoglobin A1c 5 Months E78.5 - Hyperlipidemia, unspecified, I10 - Essential (primary) hypertension, R73.9 - Hyperglycemia, unspecified, Z00.00 - Encounter for general adult medical examination without abnormal findings Complete Blood Count Auto Diff 5 Months E78.5 - Hyperlipidemia, unspecified, I10 - Essential (primary) hypertension, R73.9 - Hyperglycemia, unspecified, Z00.00 - Encounter for general adult medical examination without abnormal findings PSA,Total (Free>4and<10) 5 Months E78.5 - Hyperlipidemia, unspecified, I10 - Essential (primary) hypertension, R73.9 - Hyperglycemia, unspecified, Z00.00 - Encounter for general adult medical examination without abnormal findings Medications: Refilled amlodipine-benazepril 5-40 mg 1 cap PO DAILY 90 caps 3RF
== END 2024-12-14 13:10 | disposition home or self-care (01) ==
LOC: HO.HMCC 09:40
PROVIDERS: PCP Internal Medicine; Visit Provider Internal Medicine
DX: I10 Essential (primary) hypertension (principal); R73.9 Hyperglycemia, unspecified; E78.5 Hyperlipidemia, unspecified; Z23 Encounter for immunization

== ENCOUNTER → 2024-12-14 09:39 | Outpatient (BNVA) | payer OTHER, SELFPAY | PROVIDERS: PCP Internal Medicine; Visit Provider Internal Medicine | DX: I10 Essential (primary) hypertension (principal); Z23 Encounter for immunization; R73.9 Hyperglycemia, unspecified; E78.5 Hyperlipidemia, unspecified; Z13.31 Encounter for screening for depression | CPT/HCPCS: 90471; 90656; 96127 ==